=== PATIENT | male | born 1980 | race Two or more races ===

== ENCOUNTER 2020-03-17 17:17 | Emergency (ER) | payer OTHER ==
[~2020-03-17] VITALS: Ht 175.3 cm; Wt 74.8 kg
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
--- NOTE | 2020-03-17 17:47 | NUR ---
DR BARROS AT BEDSIDE
[2020-03-17] MEDS ORDERED: CEPHALEXIN MONOHYDRATE 500 MG CAPSULE PO ONE ×2 (17:56→18:00)
[2020-03-17] MEDS ORDERED: TDAP [DIPH/PERTUSSIS/TET] 0.5 ML VIAL IM ONE ×2 (17:56→18:00)
--- NOTE | 2020-03-17 18:00 | NUR ---
BELL MAKER AT BEDSIDE
[2020-03-17 19:16] VITALS: BP 114/68
--- NOTE | 2020-03-17 19:16 | NUR ---
Patient discharged to home in stable condition. Written and verbal after care instructions given. Patient verbalizes understanding of instruction.
== END 2020-03-17 19:16 | disposition home or self-care (01) ==
LOC: ER 17:22
DX: S50.11XA Contusion of right forearm, initial encounter (principal); L03.113 Cellulitis of right upper limb; Y04.8XXA Assault by other bodily force, initial encounter; Y93.89 Activity, other specified; Y92.89 Other specified places as the place of occurrence of the external cause; Y99.8 Other external cause status
CPT/HCPCS: 73090-TC; 73110; 73130-TC; 90715

== ENCOUNTER 2020-03-26 13:32 | Emergency (ER) | payer OTHER ==
[~2020-03-26] VITALS: Ht 175.3 cm; Wt 74.8 kg
[2020-03-26 13:38] VITALS: BP 123/64
--- NOTE | 2020-03-26 13:50 | NUR ---
WELDER MANUFACTURE AT BEDSIDE FOR XRAY.
--- NOTE | 2020-03-26 15:50 | NUR ---
WRIST SPLINT APPLIED.
--- NOTE | 2020-03-26 15:54 | NUR ---
Patient discharged to home in stable condition. Written and verbal after care instructions given. Patient verbalizes understanding of instruction.
== END 2020-03-26 15:56 | disposition home or self-care (01) ==
LOC: ER 13:33
DX: S60.211A Contusion of right wrist, initial encounter (principal); S50.11XA Contusion of right forearm, initial encounter; Z59.0 Homelessness; Y04.0XXA Assault by unarmed brawl or fight, initial encounter; Y93.89 Activity, other specified; Y92.89 Other specified places as the place of occurrence of the external cause; Y99.8 Other external cause status
CPT/HCPCS: 73090-TC; 73110

== ENCOUNTER 2023-03-24 10:59 | Emergency (ER) | payer OTHER ==
[~2023-03-24] VITALS: Ht 177.8 cm; Wt 81.2 kg
[2023-03-24 11:22] VITALS: BP 132/71
--- NOTE | 2023-03-24 12:00 | NUR ---
BIBS FOR LUMP ON BACK OF NECK FOR 2 WEEKS. NO PAIN. A/O X 3, ABLE TO MAKE NEEDS KNOWN, TOLERATING WELL ON ROOM AIR. WILL CONTINUE TO MONITOR.
[2023-03-24 12:29] LABS: BASOPHILS % (AUTO) 0.7 % (0.0-2.0); EOSINOPHILS % (AUTO) 3.3 % (0.0-6.0); HEMATOCRIT 51 % (39-51); HEMOGLOBIN 16.7 g/dL (13.5-17.5); LYMPHOCYTES # (AUTO) 1.8 K/uL (0.8-4.8); LYMPHOCYTES % (AUTO) 27.6 % (20.0-44.0); MEAN CORPUSCULAR HGB CONC 33 g/dl (31.0-36.0); MEAN CORPUSCULAR VOLUME 92 fL (80-96); MONOCYTES # (AUTO) 0.5 K/uL (0.1-1.30); MONOCYTES % (AUTO) 7.4 % (2.0-12.0); NEUTROPHILS # (AUTO) 3.9 K/uL (1.8-8.9); PLATELET COUNT (AUTO) 227 K/uL (150-450); RED BLOOD CELL COUNT(AUTO) 5.53 MIL/uL (4.5-6.0); WHITE BLOOD COUNT (AUTO) 6.4 K/uL (4.3-11.0)
[2023-03-24 12:38] LABS: CALCIUM, SERUM 9.3 mg/dL (8.5-10.1); CREATININE 0.8 mg/dL (0.6-1.3); POTASSIUM 4.4 mmol/L (3.5-5.1)
[2023-03-24] MEDS ORDERED: IOHEXOL-350 100 ML VIAL IV ONE (12:46)
[2023-03-24] MEDS ORDERED: IV NS 0.9% 250 ML IV ONE (12:47)
--- NOTE | 2023-03-24 14:35 | NUR ---
Patient discharged to home in stable condition. Written and verbal after care instructions given. Patient verbalizes understanding of instruction.IV removed. Catheter intact and site benign. Pressure and 4x4 applied to site. No bleeding noted.
== END 2023-03-24 14:36 | disposition home or self-care (01) ==
LOC: ER 11:07
DX: D17.0 Benign lipomatous neoplasm of skin and subcutaneous tissue of head, face and neck (principal); Z59.00 Homelessness unspecified
CPT/HCPCS: 99285; 70491; 85025; 80048; 36415; J7050; Q9967